=== PATIENT | female | born 1980 | race Caucasian/White ===

== ENCOUNTER 2017-09-25 22:14 | Emergency (ER) | payer SELFPAY ==
[~2017-09-25] VITALS: Ht 165.1 cm; Wt 60.3 kg
[2017-09-25 22:18] VITALS: BP 134/78
== END 2017-09-25 23:16 | disposition home or self-care (01) ==
LOC: ER 22:20
DX: L03.115 Cellulitis of right lower limb (principal); M10.9 Gout, unspecified
CPT/HCPCS: A4606; Z7610

== ENCOUNTER 2022-04-12 16:35 | Emergency (ER) | payer SELFPAY ==
[~2022-04-12] VITALS: Ht 165.1 cm; Wt 61.2 kg
--- NOTE | 2022-04-12 17:00 | NUR ---
BIBS W/ C/O LEFT LOWER BACK PAIN X2DAYS W/ CRAMPING; REPORTS VAG DISCHARGE THAT IS "GREEN IN COLOR", "HAD SEX RECENTLY" PER PT.
--- NOTE | 2022-04-12 17:37 | NUR ---
URINE SAMPLE SENT TO LAB
--- NOTE | 2022-04-12 17:40 | NUR ---
pt seen by for [email or web address]
[2022-04-12 18:50] LABS: BILIRUBIN,URINE 1+ (NEGATIVE); COLOR,URINE YELLOW (YELLOW); LEUKOCYTE ESTERASE ,URINE NEGATIVE (NEGATIVE); NITRITE, URINE NEGATIVE (NEGATIVE); PROTEIN,URINE NEGATIVE (NEGATIVE); UGLUCOSE NEGATIVE (NEGATIVE); UROBILINOGEN,URINE 0.2 EU/dL (0.2)
[2022-04-12] MEDS ORDERED: AZIT500T PO ×2 (18:55→19:04)
[2022-04-12] MEDS ORDERED: IBUP-1953 PO ×2 (18:55→19:04)
[2022-04-12 19:14] LABS: BACTERIA,URINE RARE /HPF (None Seen); RBC,URINE 0-2 /HPF (0-2); WBC,URINE 0-2 /HPF (0-3)
--- NOTE | 2022-04-12 19:40 | NUR ---
Patient discharged to home in stable condition. Written and verbal after care instructions given. Patient verbalizes understanding of instruction.
[2022-04-12 20:14] VITALS: BP 110/75
== END 2022-04-12 19:40 | disposition home or self-care (01) ==
LOC: ER 16:38
DX: R10.9 Unspecified abdominal pain (principal); F15.10 Other stimulant abuse, uncomplicated; Z79.899 Other long term (current) drug therapy
CPT/HCPCS: 81001; 84703-TC; 87491; 87591